=== PATIENT | male | born 1980 | race Caucasian/White ===

== ENCOUNTER 2024-03-19 10:41 | Inpatient (IN) | payer OTHER ==
[2024-03-19 11:07] LABS: Glucose,Whole Blood 437 mg/dL (70-110)
--- NOTE | 2024-03-19 11:28 | ED ---
Recheck HPI - General Source: patient, RN notes reviewed Mode of arrival: ambulatory Limitations: no limitations <Angella Presley - Last Filed: 03/19/24 11:26> <Derrick Gunter - Last Filed: 03/19/24 13:39> - General Chief Complaint: Recheck/Abnormal Lab/Rx Stated Complaint: Dizziness Time Seen by Provider: 03/19/24 10:58 - History of Present Illness Initial Comments: [id number] male last week past medical history was in the emergency room chief complaint of nausea, fatigue, and concern for dehydration. Patient is concerned that he may have diabetes. complaining of pain to the left ankle with ambulation and ROM. (Angella Presley) 43-year-old male presents with polydipsia polyuria, fatigue. Patient was concerned that he may have diabetes and initial blood sugar is over 400 with no prior history. He states over the past several weeks he has not felt well with nausea without vomiting. He states his diet is poor. He denies alcohol consumption. (Derrick Gunter) - Related Data Home Medications Medication Instructions Recorded Confirmed No Known Home Medications 03/19/24 03/19/24 Allergies Allergy/AdvReac Type Severity Reaction Status Date / Time No Known Allergies Allergy Verified 03/19/24 13:14 Review of Systems ROS Other: All systems not noted in ROS Statement are negative. <Angella Presley - Last Filed: 03/19/24 11:26> ROS Other: All systems not noted in ROS Statement are negative. <Derrick Gunter - Last Filed: 03/19/24 13:39> ROS Statement: Those systems with pertinent positive or pertinent negative responses have been documented in the HPI. Past Medical History Past Medical History: No Reported History History of Any Multi-Drug Resistant Organisms: None Reported Past Surgical History: No Surgical Hx Reported Past Psychological History: No Psychological Hx Reported Smoking Status: Vaper Past Alcohol Use History: None Reported Past Drug Use History: None Reported <Angella Presley - Last Filed: 03/19/24 11:26> General Exam Limitations: no limitations <Angella Presley - Last Filed: 03/19/24 11:26> General appearance: alert, in no apparent distress Head exam: Present: atraumatic, normocephalic Eye exam: Present: normal appearance, PERRL ENT exam: Present: mucous membranes dry Neck exam: Present: normal inspection Respiratory exam: Present: normal lung sounds bilaterally. Absent: respiratory distress, wheezes Cardiovascular Exam: Present: normal rhythm, tachycardia GI/Abdominal exam: Present: soft. Absent: distended, tenderness, guarding Psychiatric exam: Present: normal affect, normal mood Skin exam: Present: warm, dry, intact <Derrick Gunter - Last Filed: 03/19/24 13:39> - General Exam Comments Initial Comments: Visual Physical Exam Vital signs reviewed General: Well-appearing, nontoxic, no acute distress. Head: Normocephalic, atraumatic Eyes: PERRLA, EOMI ENT: Airway patent Chest: Nonlabored breathing Skin: No visual rash, normal skin tone Neuro: Alert and oriented 3 Musculoskeletal: No gross abnormalities (Angella Presley) Course Vital Signs 03/19/24 11:03 Temperature 97.5 F L Pulse Rate 119 H Respiratory 18 Rate Blood Pressure 123/82 O2 Sat by Pulse 98 Oximetry Medical Decision Making <Angella Presley - Last Filed: 03/19/24 11:26> - Lab Data Result diagrams: 03/19/24 11:22 03/19/24 11:22 <Derrick Gunter - Last Filed: 03/19/24 13:39> - Medical Decision Making I completed the quick note portion of this chart signed Angella Presley PA-C (Angella Presley) Was pt. sent in by a medical professional or institution (LINDA Mukherjee, [employer], urgent care, hospital, or senior care...) When possible be specific @ -No Did you speak to anyone other than the patient for history (EMS, parent, family, police, friend...)? What history was obtained from this source @ -No Did you review nursing and triage notes (agree or disagree)? Why? @ -I reviewed and agree with nursing and triage notes Were old charts reviewed (outside hosp., previous admission, EMS record, old EKG, old radiological studies, urgent care reports/EKG's, senior care records)? Report findings @ -No old charts were reviewed Differential Diagnosis: New onset diabetes, DKA, dehydration, infection EKG interpreted by me (3pts min.). @Sinus tachycardia rate of 106 WV interval 151, QRS duration 98, QTc 466 ST segment elevation questionable in aVF, no elevation in lead II or 3 no reciprocal change X-rays interpreted by me (1pt min.). @ -None done CT interpreted by me (1pt min.). @ -None done U/S interpreted by me (1pt. min.). @ -None done What testing was considered but not performed or refused? (CT, X-rays, U/S, labs)? Why? @ -None What meds were considered but not given or refused? Why? @ -None Did you discuss the management of the patient with other professionals (professionals i.e. DrCelso, PA, [employer], lab, RT, psych nurse, vp digital marketing social media and crm, manager transition, teacher, senior grants officer, senior case manager)? Give summary @ -Case discussed with Dr. Garcia, who will admit Was smoking cessation discussed for >3mins.? @ -No Was critical care preformed (if so, how long)? @ -Yes, 35 minutes Were there social determinants of health that impacted care today? How? (Homelessness, low income, unemployed, alcoholism, drug addiction, transportation, low edu. Level, literacy, decrease access to med. care, half-way, rehab)? @ -No Was there de-escalation of care discussed even if they declined (Discuss DNR or withdrawal of care, Hospice)? DNR status @ -No What co-morbidities impacted this encounter? (DM, HTN, Smoking, COPD, CAD, Cancer, CVA, ARF, Chemo, Hep., AIDS, mental health diagnosis, sleep apnea, morbid obesity)? @ -None Was patient admitted / discharged? Hospital course, mention meds given and route, prescriptions, significant lab abnormalities, going to OR and other pertinent info. @ -43-year-old male with new onset diabetes. Patient given 2 L normal saline and started on insulin drip in the emergency department. He is in diabetic ketoacidosis with elevated blood sugar, acetone positive and an undetectable CO2. Venous gases ordered, results pending. Patient admitted to internal m edicine. Undiagnosed new problem with uncertain prognosis? @ -No Drug Therapy requiring intensive monitoring for toxicity (Heparin, Nitro, Insulin, Cardizem)? @ -No Were any procedures done? @ -No Diagnosis/symptom? @ -[Diabetic ketoacidosis, new onset diabetes Acute, or Chronic, or Acute on Chronic? @ -Acute Uncomplicated (without systemic symptoms) or Complicated (systemic symptoms)? @ -Default Side effects of treatment? @ -No Exacerbation, Progression, or Severe Exacerbation? @ -No Poses a threat to life or bodily function? How? (Chest pain, USA, ND, pneumonia, PE, COPD, DKA, ARF, appy, cholecystitis, CVA, Diverticulitis, Homicidal, Suicidal, threat to staff... and all critical care pts) @ -Yes, DKA (Derrick Gunter) - Lab Data Lab Results 03/19/24 03/19/24 03/19/24 Range/Units 11:06 11:22 11:22 WBC 14.5 H (3.8-10.6) k/uL RBC 6.05 H (4.30-5.90) m/uL Hgb 17.9 H (13.0-17.5) gm/dL Hct 54.3 H (39.0-53.0) % MCV 89.7 (80.0-100.0) fL MCH 29.5 (25.0-35.0) pg MCHC 32.9 (31.0-37.0) g/dL RDW 13.5 (11.5-15.5) % Plt Count 317 (150-450) k/uL MPV 9.1 Neutrophils % 79 % Lymphocytes % 13 % Monocytes % 5 % Eosinophils % 0 % Basophils % 1 % Neutrophils # 11.5 H (1.3-7.7) k/uL Lymphocytes # 1.9 (1.0-4.8) k/uL Monocytes # 0.7 (0-1.0) k/uL Eosinophils # 0.1 (0-0.7) k/uL Basophils # 0.1 (0-0.2) k/uL Sodium 134 L (137-145) mmol/L Potassium 4.5 (3.5-5.1) mmol/L Chloride 100 (98-107) mmol/L Carbon Dioxide <5 L* (22-30) mmol/L Anion Gap mmol/L BUN 22 H (9-20) mg/dL Creatinine 1.08 (0.66-1.25) mg/dL Est GFR (CKD-EPI)AfAm >90 (>60 ml/min/1.73 sqM) Est GFR (CKD-EPI)NonAf 84 (>60 ml/min/1.73 sqM) Glucose 449 H (74-99) mg/dL POC Glucose (mg/dL) 437 H (70-110) mg/dL POC Glu Secretary Administrative Assistant ROSALVA Vu Calcium 9.0 (8.4-10.2) mg/dL Total Bilirubin 0.9 (0.2-1.3) mg/dL AST 36 (17-59) U/L ALT 56 H (4-49) U/L Alkaline Phosphatase 237 H (38-126) U/L Total Protein 8.3 H (6.3-8.2) g/dL Albumin 4.8 (3.5-5.0) g/dL Urine Color Urine Appearance (Clear) Urine pH (5.0-8.0) Ur Specific [place] (1.001-1.035) Urine Protein (Negative) Urine Glucose (UA) (Negative) Urine Ketones (Negative) Urine Blood (Negative) Urine Nitrite (Negative) Urine Bilirubin (Negative) Urine Urobilinogen (<2.0) mg/dL Ur Leukocyte Esterase (Negative) Urine RBC (0-5) /hpf Urine WBC (0-5) /hpf Urine Bacteria (None) /hpf Hyaline Casts (0-2) /lpf Urine Mucus (None) /hpf Acetone, Qual Positive (Negative) 03/19/24 Range/Units 11:29 WBC (3.8-10.6) k/uL RBC (4.30-5.90) m/uL Hgb (13.0-17.5) gm/dL Hct (39.0-53.0) % MCV (80.0-100.0) fL MCH (25.0-35.0) pg MCHC (31.0-37.0) g/dL RDW (11.5-15.5) % Plt Count (150-450) k/uL MPV Neutrophils % % Lymphocytes % % Monocytes % % Eosinophils % % Basophils % % Neutrophils # (1.3-7.7) k/uL Lymphocytes # (1.0-4.8) k/uL Monocytes # (0-1.0) k/uL Eosinophils # (0-0.7) k/uL Basophils # (0-0.2) k/uL Sodium (137-145) mmol/L Potassium (3.5-5.1) mmol/L Chloride (98-107) mmol/L Carbon Dioxide (22-30) mmol/L Anion Gap mmol/L BUN (9-20) mg/dL Creatinine (0.66-1.25) mg/dL Est GFR (CKD-EPI)AfAm (>60 ml/min/1.73 sqM) Est GFR (CKD-EPI)NonAf (>60 ml/min/1.73 sqM) Glucose (74-99) mg/dL POC Glucose (mg/dL) (70-110) mg/dL POC Glu Secretary Administrative Assistant ID Calcium (8.4-10.2) mg/dL Total Bilirubin (0.2-1.3) mg/dL AST (17-59) U/L ALT (4-49) U/L Alkaline Phosphatase (38-126) U/L Total Protein (6.3-8.2) g/dL Albumin (3.5-5.0) g/dL Urine Color Colorless Urine Appearance Clear (Clear) Urine pH 5.5 (5.0-8.0) Ur Specific [place] 1.027 (1.001-1.035) Urine Protein 1+ H (Negative) Urine Glucose (UA) 4+ H (Negative) Urine Ketones 4+ H (Negative) Urine Blood Small H (Negative) Urine Nitrite Negative (Negative) Urine Bilirubin Negative (Negative) Urine Urobilinogen <2.0 (<2.0) mg/dL Ur Leukocyte Esterase Negative (Negative) Urine RBC 1 (0-5) /hpf Urine WBC 2 (0-5) /hpf Urine Bacteria Rare H (None) /hpf Hyaline Casts 3 H (0-2) /lpf Urine Mucus Rare H (None) /hpf Acetone, Qual (Negative) Critical Care Time Critical Care Time: Yes Total Critical Care Time: 35 <Derrick Gunter - Last Filed: 03/19/24 13:39> Disposition <Angella Presley - Last Filed: 03/19/24 11:26> Is patient prescribed a controlled substance at d/c from ED?: No Time of Disposition: 12:54 <Derrick Gunter - Last Filed: 03/19/24 13:39> Clinical Impression: DKA (diabetic ketoacidosis) Disposition: ADMITTED IP TO THIS HOSP Condition: Serious
[2024-03-19 11:31] LABS: Basophils # (A) 0.1 k/uL (0-0.2); Basophils % (A) 1 %; Eosinophils # (A) 0.1 k/uL (0-0.7); Eosinophils % (A) 0 %; HCT 54.3 % (39.0-53.0); HGB 17.9 gm/dL (13.0-17.5); Lymphocytes # (A) 1.9 k/uL (1.0-4.8); Lymphocytes % (A) 13 %; MCH 29.5 pg (25.0-35.0); MCHC 32.9 g/dL (31.0-37.0); MCV 89.7 fL (80.0-100.0); Mean Platelet Volume 9.1; Monocytes # (A) 0.7 k/uL (0-1.0); Monocytes % (A) 5 %; Neutrophils # (A) 11.5 k/uL (1.3-7.7); Neutrophils % (A) 79 %; Platelet Count 317 k/uL (150-450); RBC 6.05 m/uL (4.30-5.90); RDW 13.5 % (11.5-15.5); WBC 14.5 k/uL (3.8-10.6)
[2024-03-19 11:58] LABS: ALT 56 U/L (4-49); AST 36 U/L (17-59); African American GFR (CKD) >90 (>60 ml/min/1.73 sqM); Albumin 4.8 g/dL (3.5-5.0); Alkaline Phosphatase 237 U/L (38-126); Blood Urea Nitrogen 22 mg/dL (9-20); Chloride 100 mmol/L (98-107); Glucose 449 mg/dL (74-99); Non-African American GFR(CKD) 84 (>60 ml/min/1.73 sqM); Potassium 4.5 mmol/L (3.5-5.1); Sodium 134 mmol/L (137-145); Total Bilirubin 0.9 mg/dL (0.2-1.3); Total Protein 8.3 g/dL (6.3-8.2)
[2024-03-19 12:03] LABS: Appearance,Urine Clear (Clear); Bacteria,Urine Rare /hpf; Bilirubin,Urine Negative (Negative); Blood,Urine Small (Negative); Color,Urine Colorless; Glucose,Urine (UA) 4+ (Negative); Hyaline Casts,Urine 3 /lpf (0-2); Leukocyte Esterase,Urine Negative (Negative); Mucus,Urine Rare /hpf; Nitrite,Urine Negative (Negative); PH, Urine 5.5 (5.0-8.0); Protein,Urine 1+ (Negative); RBC,Urine 1 /hpf (0-5); Specific Gravity,Urine 1.027 (1.001-1.035); Urobilinogen,Urine <2.0 mg/dL (<2.0); WBC,Urine 2 /hpf (0-5)
[2024-03-19 12:12] LABS: Ketones,Urine 4+ (Negative)
[2024-03-19 12:18] LABS: Carbon Dioxide <5 mmol/L (22-30)
[2024-03-19] MEDS: SODIUM CHLORIDE 0.9% 1,000 ML IV ONE ×2 (12:57→12:58)
[2024-03-19] MEDS: INSULIN REGULAR 100 UNIT in SODIUM CHLORIDE 0.9% 100 ML IV SCH (13:15)
[2024-03-19 13:55] LABS: VBG PH 7.13 (7.31-7.41)
[2024-03-19] MEDS: POTASSIUM CHLORIDE ER 20 MEQ TAB.ER PO STA (14:12)
[2024-03-19 14:42] LABS: Glucose,Whole Blood 301 mg/dL (70-110)
[2024-03-19] MEDS: SODIUM CHLORIDE 0.9% 1,000 ML IV SCH (14:46)
[2024-03-19 15:14] LABS: Glucose,Whole Blood 270 mg/dL (70-110)
[2024-03-19] MEDS: D5-0.45% NACL WITH KCL 20MEQ/L 1,000 ML IV SCH (16:00)
[2024-03-19 16:03] LABS: Glucose,Whole Blood 206 mg/dL (70-110)
[2024-03-19 16:31] LABS: African American GFR (CKD) >90 (>60 ml/min/1.73 sqM); Anion Gap 27 mmol/L; Blood Urea Nitrogen 19 mg/dL (9-20); Chloride 105 mmol/L (98-107); Glucose 232 mg/dL (74-99); Non-African American GFR(CKD) >90 (>60 ml/min/1.73 sqM); Potassium 3.9 mmol/L (3.5-5.1); Sodium 139 mmol/L (137-145)
[2024-03-19 16:36] LABS: Carbon Dioxide 7 mmol/L (22-30)
[2024-03-19] MEDS ORDERED: NALOXONE 0.4 MG/ML 1 ML VIAL IV PRN (17:13)
[2024-03-19] MEDS ORDERED: ONDANSETRON 4 MG/2 ML VIAL IVP PRN (17:13)
--- NOTE | 2024-03-19 17:20 | P.HPIM ---
History of Present Illness H&P Date: 03/19/24 43 year old M with no PMH does not follow a PCP presents to the ED for a constellation of symptoms. He reports nausea/vomiting, lightheadedness, fatigue, polydipsia, polyuria, poor appetite for the past week and a half. This prompted him to come to the ED. He denies any abdominal or chest pain, changes in bowel habits, fever or chills, numbness/weakness/tingling of the extremities. Denies alcohol or illicit drugs. In the ED he underwent extensive evaluation. T 97.5F, HR 119, RR 18, BP 123/80, 98% on RA. CBC and CMP significant for WBC 14.5, RBC 6.05, Hg 17.9, Hct 54.3, Na 134, bicarb < 5, BUN 22, glu 449, ALT 56, alk phos 237. UA 1+ protein, 4+ glucose, 4+ ketones, small blood, negative LE or nitrite. EKG sinus tachycardia with ST elevation in aVF with no reciprocal changes. Patient is started on an insulin drip and 2L NS bolus and admitted for further workup and management. General: non toxic, no distress, appears at stated age Derm: warm, dry Head: atraumatic, normocephalic, symmetric Eyes: EOMI, no lid lag, anicteric sclera Mouth: no lip lesion, mucus membranes moist Cardiovascular: S1S2 tachy, no murmur Lungs: Clear to auscultation bilateral, no rhonchi, no rales, no accessory muscle use Ext: no gross muscle atrophy, no edema, no contractures Abd: Soft, non tender to palpation Neuro: no focal neuro deficits Psych: Alert, oriented, appropriate affect Based on my assessment of this patient, this patient meets a high complexity level of care. Diabetic ketoacidosis: Start insulin drip at 1 unit/kg/hr. D5 1/2 NS at 150 cc/hr. Telemetry monitoring. Hourly accuchecks. BMP Q4H. Check A1c. Admit to ICU. SIRS likely related to above: Monitor fever profile. No signs of active infection. Erythrocytosis: Likely due to dehydration. Elevated BUN: Likely due to dehydration. Transaminitis: Obtain Lipid panel. Obesity with BMI 34. CODE STATUS: FULL CODE DVT Prophylaxis: Lovenox SQ GI Prophylaxis: Designated medical POA if patient is not able to make medical decisions for the mselves: I have reviewed the following independent crop consultant notes: ED note. I have reviewed the results of the following tests: As above. I have ordered the following tests: As above. I have discussed the care of this patient with the following independent historian: LELE. I have independently interpreted the following test below: Past Medical History Past Medical History: No Reported History History of Any Multi-Drug Resistant Organisms: None Reported Past Surgical History: No Surgical Hx Reported Past Psychological History: No Psychological Hx Reported Smoking Status: Vaper Past Alcohol Use History: None Reported Past Drug Use History: None Reported Medications and Allergies Home Medications Medication Instructions Recorded Confirmed Type No Known Home Medications 03/19/24 03/19/24 History Allergies Allergy/AdvReac Type Severity Reaction Status Date / Time No Known Allergies Allergy Verified 03/19/24 13:14 Physical Exam Vitals: Vital Signs Temp Pulse Resp BP Pulse Ox 03/19/24 16:06 101 H 19 132/94 99 03/19/24 15:04 110 H 20 126/87 100 03/19/24 11:03 97.5 F L 119 H 18 123/82 98 Intake and Output 03/19/24 03/19/24 03/19/24 06:59 14:59 22:59 Intake Total 34.891 Balance 34.891 Intake: Intake, IV Titration 34.891 Amount Insulin Regular 100 unit 34.891 In Sodium Chloride 0.9% 100 ml @ 0.1 UNITS/KG/HR 12.461 mls/hr IV .Q8H7M [facility] Rx#:[id number] Other: Weight 123.377 kg Results CBC & Chem 7: 03/19/24 11:22 03/19/24 15:58 Labs: Abnormal Lab Results - Last 24 Hours (Table) 03/19/24 03/19/24 03/19/24 Range/Units 11:06 11:22 11:22 WBC 14.5 H (3.8-10.6) k/uL RBC 6.05 H (4.30-5.90) m/uL Hgb 17.9 H (13.0-17.5) gm/dL Hct 54.3 H (39.0-53.0) % Neutrophils # 11.5 H (1.3-7.7) k/uL VBG pH (7.31-7.41) VBG pCO2 (37-51) mmHg VBG HCO3 (24-28) mmol/L Sodium 134 L (137-145) mmol/L Carbon Dioxide <5 L* (22-30) mmol/L BUN 22 H (9-20) mg/dL Glucose 449 H (74-99) mg/dL POC Glucose (mg/dL) 437 H (70-110) mg/dL ALT 56 H (4-49) U/L Alkaline Phosphatase 237 H (38-126) U/L Total Protein 8.3 H (6.3-8.2) g/dL Urine Protein (Negative) Urine Glucose (UA) (Negative) Urine Ketones (Negative) Urine Blood (Negative) Urine Bacteria (None) /hpf Hyaline Casts (0-2) /lpf Urine Mucus (None) /hpf 03/19/24 03/19/24 03/19/24 Range/Units 11:29 13:13 14:41 WBC (3.8-10.6) k/uL RBC (4.30-5.90) m/uL Hgb (13.0-17.5) gm/dL Hct (39.0-53.0) % Neutrophils # (1.3-7.7) k/uL VBG pH 7.13 L* (7.31-7.41) VBG pCO2 28 L (37-51) mmHg VBG HCO3 9 L* (24-28) mmol/L Sodium (137-145) mmol/L Carbon Dioxide (22-30) mmol/L BUN (9-20) mg/dL Glucose (74-99) mg/dL POC Glucose (mg/dL) 301 H (70-110) mg/dL ALT (4-49) U/L Alkaline Phosphatase (38-126) U/L Total Protein (6.3-8.2) g/dL Urine Protein 1+ H (Negative) Urine Glucose (UA) 4+ H (Negative) Urine Ketones 4+ H (Negative) Urine Blood Small H (Negative) Urine Bacteria Rare H (None) /hpf Hyaline Casts 3 H (0-2) /lpf Urine Mucus Rare H (None) /hpf 03/19/24 03/19/24 03/19/24 Range/Units 15:13 15:58 16:01 WBC (3.8-10.6) k/uL RBC (4.30-5.90) m/uL Hgb (13.0-17.5) gm/dL Hct (39.0-53.0) % Neutrophils # (1.3-7.7) k/uL VBG pH (7.31-7.41) VBG pCO2 (37-51) mmHg VBG HCO3 (24-28) mmol/L Sodium (137-145) mmol/L Carbon Dioxide 7 L* (22-30) mmol/L BUN (9-20) mg/dL Glucose 232 H (74-99) mg/dL POC Glucose (mg/dL) 270 H 206 H (70-110) mg/dL ALT (4-49) U/L Alkaline Phosphatase (38-126) U/L Total Protein (6.3-8.2) g/dL Urine Protein (Negative) Urine Glucose (UA) (Negative) Urine Ketones (Negative) Urine Blood (Negative) Urine Bacteria (None) /hpf Hyaline Casts (0-2) /lpf Urine Mucus (None) /hpf
[2024-03-19 17:38] LABS: Glucose,Whole Blood 202 mg/dL (70-110)
[2024-03-19 18:38] LABS: Glucose,Whole Blood 180 mg/dL (70-110)
[2024-03-19 19:37] LABS: Glucose,Whole Blood 151 mg/dL (70-110)
[2024-03-19 20:41] LABS: Glucose,Whole Blood 143 mg/dL (70-110)
[2024-03-19 20:58] LABS: African American GFR (CKD) >90 (>60 ml/min/1.73 sqM); Anion Gap 18 mmol/L; Blood Urea Nitrogen 16 mg/dL (9-20); Carbon Dioxide 10 mmol/L (22-30); Chloride 108 mmol/L (98-107); Glucose 149 mg/dL (74-99); Non-African American GFR(CKD) >90 (>60 ml/min/1.73 sqM); Potassium 4.1 mmol/L (3.5-5.1); Sodium 136 mmol/L (137-145)
[2024-03-19 21:32] LABS: Glucose,Whole Blood 174 mg/dL (70-110)
[2024-03-19 22:32] LABS: Glucose,Whole Blood 147 mg/dL (70-110)
[2024-03-19] MEDS: ACETAMINOPHEN TAB 325 MG TAB PO PRN (23:41)
[2024-03-19 23:45] LABS: Glucose,Whole Blood 158 mg/dL (70-110)
[2024-03-20 00:55] LABS: Glucose,Whole Blood 195 mg/dL (70-110)
[2024-03-20 01:56] LABS: African American GFR (CKD) >90 (>60 ml/min/1.73 sqM); Anion Gap 15 mmol/L; Blood Urea Nitrogen 14 mg/dL (9-20); Carbon Dioxide 12 mmol/L (22-30); Chloride 107 mmol/L (98-107); Glucose 195 mg/dL (74-99); Non-African American GFR(CKD) >90 (>60 ml/min/1.73 sqM); Potassium 3.9 mmol/L (3.5-5.1); Sodium 134 mmol/L (137-145)
[2024-03-20 02:02] LABS: Glucose,Whole Blood 197 mg/dL (70-110)
[2024-03-20 02:47] LABS: Glucose,Whole Blood 197 mg/dL (70-110)
[2024-03-20 03:13] LABS: Chol/HDL Ratio 6.21 Ratio; LDL Cholesterol,Calculated 120.1 mg/dL (0.0-131.0)
[2024-03-20 04:07] LABS: Glucose,Whole Blood 211 mg/dL (70-110)
[2024-03-20 05:08] LABS: Glucose,Whole Blood 204 mg/dL (70-110)
[2024-03-20 06:20] LABS: Glucose,Whole Blood 207 mg/dL (70-110)
[2024-03-20 07:22] LABS: Glucose,Whole Blood 217 mg/dL (70-110)
[2024-03-20 08:52] LABS: African American GFR (CKD) >90 (>60 ml/min/1.73 sqM); Anion Gap 14 mmol/L; Blood Urea Nitrogen 12 mg/dL (9-20); Carbon Dioxide 14 mmol/L (22-30); Chloride 105 mmol/L (98-107); Glucose 222 mg/dL (74-99); Non-African American GFR(CKD) >90 (>60 ml/min/1.73 sqM); Potassium 3.9 mmol/L (3.5-5.1); Sodium 133 mmol/L (137-145)
[2024-03-20 09:12] LABS: Glucose,Whole Blood 208 mg/dL (70-110)
[2024-03-20] MEDS: ENOXAPARIN 40 MG/0.4 ML SYRINGE SQ SCH (09:14)
[2024-03-20 10:22] LABS: Glucose,Whole Blood 235 mg/dL (70-110)
[2024-03-20 11:53] LABS: Glucose,Whole Blood 220 mg/dL (70-110)
[2024-03-20 12:39] LABS: African American GFR (CKD) >90 (>60 ml/min/1.73 sqM); Anion Gap 15 mmol/L; Blood Urea Nitrogen 11 mg/dL (9-20); Carbon Dioxide 13 mmol/L (22-30); Chloride 105 mmol/L (98-107); Glucose 236 mg/dL (74-99); Non-African American GFR(CKD) >90 (>60 ml/min/1.73 sqM); Potassium 3.9 mmol/L (3.5-5.1); Sodium 133 mmol/L (137-145)
[2024-03-20 13:30] LABS: Glucose,Whole Blood 212 mg/dL (70-110)
--- NOTE | 2024-03-20 14:57 | P.PN ---
Subjective Progress Note Date: 03/20/24 43 year old M with no PMH does not follow a PCP presents to the ED for a constellation of symptoms. He reports nausea/vomiting, lightheadedness, fatigue, polydipsia, polyuria, poor appetite for the past week and a half. This prompted him to come to the ED. He denies any abdominal or chest pain, changes in bowel habits, fever or chills, numbness/weakness/tingling of the extremities. Denies alcohol or illicit drugs. In the ED he underwent extensive evaluation. T 97.5F, HR 119, RR 18, BP 123/80, 98% on RA. CBC and CMP significant for WBC 14.5, RBC 6.05, Hg 17.9, Hct 54.3, Na 134, bicarb < 5, BUN 22, glu 449, ALT 56, alk phos 237. UA 1+ protein, 4+ glucose, 4+ ketones, small blood, negative LE or nitrite. EKG sinus tachycardia with ST elevation in aVF with no reciprocal changes. Patient is started on an insulin drip and 2L NS bolus and admitted for further workup and management. 03/20 Patient was seen and examined. Feeling better. Maintained on insulin drip and D5 1/2NS w/ KCl at 150 cc/hr. A1c 14.7. BMP Na 133, bicarb 13, Cr 0.57, glu 236. Phos 1.9. Lipid panel TG 226, T. Chol 197, LDL 120.1, HDL 31.7. General: non toxic, no distress, appears at stated age Derm: warm, dry Head: atraumatic, normocephalic, symmetric Eyes: EOMI, no lid lag, anicteric sclera Mouth: no lip lesion, mucus membranes moist Cardiovascular: S1S2 reg, no murmur Lungs: Clear to auscultation bilateral, no rhonchi, no rales, no accessory muscle use Ext: no gross muscle atrophy, no edema, no contractures Abd: Soft, non tender to palpation Neuro: no focal neuro deficits Psych: Alert, oriented, appropriate affect Based on my assessment of this patient, this patient meets a high complexity level of care. Diabetic ketoacidosis: Continue insulin drip at 1 unit/kg/hr until bicarb normalizes. Continue D5 1/2 NS at 150 cc/hr. Telemetry monitoring. Hourly accuchecks. BMP Q8H. 1 amp sodium bicarb today. SIRS likely related to above: Monitor fever profile. No signs of active infection. Erythrocytosis: Likely due to dehydration. Elevated BUN: Likely due to dehydration. Transaminitis: Obtain Lipid panel. Obesity with BMI 34. CODE STATUS: FULL CODE DVT Prophylaxis: Lovenox SQ GI Prophylaxis: Designated medical POA if patient is not able to make medical decisions for themselves: I have reviewed the following neuropsychology medical consultant notes: I have reviewed the results of the following tests: As above. I have ordered the following tests: As above. I have discussed the care of this patient with the following independent historian: RN. I have independently interpreted the following test below: Objective - Vital Signs Vital signs: Vital Signs Temp 98.2 F 03/20/24 13:19 Pulse 85 03/20/24 13:19 Resp 16 03/20/24 13:19 BP 118/75 03/20/24 13:19 Pulse Ox 98 03/20/24 13:19 FiO2 Intake & Output 03/19/24 03/20/24 03/20/24 18:59 06:59 18:59 Intake Total 66.874 49.689 28.295 Balance 66.874 49.689 28.295 Weight 123.377 kg Intake: Intake, IV Titration 66.874 49.689 28.295 Amount Insulin Regular 100 unit 66.874 49.689 28.295 In Sodium Chloride 0.9% 100 ml @ 0.1 UNITS/KG/HR 12.461 mls/hr IV .Q8H7M [facility] Rx#:[id number] - Labs CBC & Chem 7: 03/19/24 11:22 03/20/24 12:01 Labs: Abnormal Lab Results - Last 24 Hours (Table) 03/19/24 03/19/24 03/19/24 Range/Units 15:13 15:58 16:01 Sodium (137-145) mmol/L Chloride (98-107) mmol/L Carbon Dioxide 7 L* (22-30) mmol/L Creatinine (0.66-1.25) mg/dL Glucose 232 H (74-99) mg/dL POC Glucose (mg/dL) 270 H 206 H (70-110) mg/dL Hemoglobin A1c (<=6.0) % Phosphorus (2.5-4.5) mg/dL Triglycerides (0.00-149.00) mg/dL VLDL Cholesterol, Calc (5.00-40.00) mg/dL HDL Cholesterol (40.00-60.00) mg/dL 03/19/24 03/19/24 03/19/24 Range/Units 17:32 18:36 19:35 Sodium (137-145) mmol/L Chloride (98-107) mmol/L Carbon Dioxide (22-30) mmol/L Creatinine (0.66-1.25) mg/dL Glucose (74-99) mg/dL POC Glucose (mg/dL) 202 H 180 H 151 H (70-110) mg/dL Hemoglobin A1c (<=6.0) % Phosphorus (2.5-4.5) mg/dL Triglycerides (0.00-149.00) mg/dL VLDL Cholesterol, Calc (5.00-40.00) mg/dL HDL Cholesterol (40.00-60.00) mg/dL 03/19/24 03/19/24 03/19/24 Range/Units 20:08 20:08 20:08 Sodium 136 L (137-145) mmol/L Chloride 108 H (98-107) mmol/L Carbon Dioxide 10 L (22-30) mmol/L Creatinine (0.66-1.25) mg/dL Glucose 149 H (74-99) mg/dL POC Glucose (mg/dL) (70-110) mg/dL Hemoglobin A1c 14.7 H (<=6.0) % Phosphorus 2.1 L (2.5-4.5) mg/dL Triglycerides (0.00-149.00) mg/dL VLDL Cholesterol, Calc (5.00-40.00) mg/dL HDL Cholesterol (40.00-60.00) mg/dL 03/19/24 03/19/24 03/19/24 Range/Units 20:08 20:29 21:31 Sodium (137-145) mmol/L Chloride (98-107) mmol/L Carbon Dioxide (22-30) mmol/L Creatinine (0.66-1.25) mg/dL Glucose (74-99) mg/dL POC Glucose (mg/dL) 143 H 174 H (70-110) mg/dL Hemoglobin A1c (<=6.0) % Phosphorus (2.5-4.5) mg/dL Triglycerides 226.00 H (0.00-149.00) mg/dL VLDL Cholesterol, Calc 45.20 H (5.00-40.00) mg/dL HDL Cholesterol 31.70 L (40.00-60.00) mg/dL 03/19/24 03/19/24 03/20/24 Range/Units 22:31 23:44 00:39 Sodium 134 L (137-145) mmol/L Chloride (98-107) mmol/L Carbon Dioxide 12 L (22-30) mmol/L Creatinine 0.62 L (0.66-1.25) mg/dL Glucose 195 H (74-99) mg/dL POC Glucose (mg/dL) 147 H 158 H (70-110) mg/dL Hemoglobin A1c (<=6.0) % Phosphorus (2.5-4.5) mg/dL Triglycerides (0.00-149.00) mg/dL VLDL Cholesterol, Calc (5.00-40.00) mg/dL HDL Cholesterol (40.00-60.00) mg/dL 03/20/24 03/20/24 03/20/24 Range/Units 00:53 01:58 02:46 Sodium (137-145) mmol/L Chloride (98-107) mmol/L Carbon Dioxide (22-30) mmol/L Creatinine (0.66-1.25) mg/dL Glucose (74-99) mg/dL POC Glucose (mg/dL) 195 H 197 H 197 H (70-110) mg/dL Hemoglobin A1c (<=6.0) % Phosphorus (2.5-4.5) mg/dL Triglycerides (0.00-149.00) mg/dL VLDL Cholesterol, Calc (5.00-40.00) mg/dL HDL Cholesterol (40.00-60.00) mg/dL 03/20/24 03/20/24 03/20/24 Range/Units 04:04 05:07 06:18 Sodium (137-145) mmol/L Chloride (98-107) mmol/L Carbon Dioxide (22-30) mmol/L Creatinine (0.66-1.25) mg/dL Glucose (74-99) mg/dL POC Glucose (mg/dL) 211 H 204 H 207 H (70-110) mg/dL Hemoglobin A1c (<=6.0) % Phosphorus (2.5-4.5) mg/dL Triglycerides (0.00-149.00) mg/dL VLDL Cholesterol, Calc (5.00-40.00) mg/dL HDL Cholesterol (40.00-60.00) mg/dL 03/20/24 03/20/24 03/20/24 Range/Units 07:20 07:25 07:25 Sodium 133 L (137-145) mmol/L Chloride (98-107) mmol/L Carbon Dioxide 14 L (22-30) mmol/L Creatinine 0.59 L (0.66-1.25) mg/dL Glucose 222 H (74-99) mg/dL POC Glucose (mg/dL) 217 H (70-110) mg/dL Hemoglobin A1c (<=6.0) % Phosphorus 2.1 L (2.5-4.5) mg/dL Triglycerides (0.00-149.00) mg/dL VLDL Cholesterol, Calc (5.00-40.00) mg/dL HDL Cholesterol (40.00-60.00) mg/dL 03/20/24 03/20/24 03/20/24 Range/Units 09:10 10:20 11:52 Sodium (137-145) mmol/L Chloride (98-107) mmol/L Carbon Dioxide (22-30) mmol/L Creatinine (0.66-1.25) mg/dL Glucose (74-99) mg/dL POC Glucose (mg/dL) 208 H 235 H 220 H (70-110) mg/dL Hemoglobin A1c (<=6.0) % Phosphorus (2.5-4.5) mg/dL Triglycerides (0.00-149.00) mg/dL VLDL Cholesterol, Calc (5.00-40.00) mg/dL HDL Cholesterol (40.00-60.00) mg/dL 03/20/24 03/20/24 03/20/24 Range/Units 12:01 12:01 13:27 Sodium 133 L (137-145) mmol/L Chloride (98-107) mmol/L Carbon Dioxide 13 L (22-30) mmol/L Creatinine 0.57 L (0.66-1.25) mg/dL Glucose 236 H (74-99) mg/dL POC Glucose (mg/dL) 212 H (70-110) mg/dL Hemoglobin A1c (<=6.0) % Phosphorus 1.9 L (2.5-4.5) mg/dL Triglycerides (0.00-149.00) mg/dL VLDL Cholesterol, Calc (5.00-40.00) mg/dL HDL Cholesterol (40.00-60.00) mg/dL
[2024-03-20 14:59] LABS: Glucose,Whole Blood 277 mg/dL (70-110)
[2024-03-20] MEDS: SODIUM BICARB 8.4% 50 ML SYR (1 MEQ/ML) IV STA (15:23)
[2024-03-20 16:04] LABS: Glucose,Whole Blood 326 mg/dL (70-110)
[2024-03-20 16:53] LABS: African American GFR (CKD) >90 (>60 ml/min/1.73 sqM); Anion Gap 13 mmol/L; Blood Urea Nitrogen 11 mg/dL (9-20); Calcium 8.6 mg/dL (8.4-10.2); Carbon Dioxide 15 mmol/L (22-30); Chloride 104 mmol/L (98-107); Glucose 341 mg/dL (74-99); Non-African American GFR(CKD) >90 (>60 ml/min/1.73 sqM); Potassium 4.1 mmol/L (3.5-5.1); Sodium 132 mmol/L (137-145)
[2024-03-20 17:04] LABS: Glucose,Whole Blood 282 mg/dL (70-110)
[2024-03-20 18:07] LABS: Glucose,Whole Blood 255 mg/dL (70-110)
[2024-03-20 19:09] LABS: Glucose,Whole Blood 226 mg/dL (70-110)
[2024-03-20 20:05] LABS: Glucose,Whole Blood 216 mg/dL (70-110)
[2024-03-20 21:19] LABS: Glucose,Whole Blood 186 mg/dL (70-110)
[2024-03-20 22:13] LABS: Glucose,Whole Blood 191 mg/dL (70-110)
[2024-03-20 23:05] LABS: Glucose,Whole Blood 175 mg/dL (70-110)
[2024-03-21 00:03] LABS: Glucose,Whole Blood 162 mg/dL (70-110)
[2024-03-21 00:48] LABS: African American GFR (CKD) >90 (>60 ml/min/1.73 sqM); Anion Gap 8 mmol/L; Blood Urea Nitrogen 9 mg/dL (9-20); Calcium 8.3 mg/dL (8.4-10.2); Carbon Dioxide 18 mmol/L (22-30); Chloride 107 mmol/L (98-107); Glucose 164 mg/dL (74-99); Non-African American GFR(CKD) >90 (>60 ml/min/1.73 sqM); Phosphorus 1.9 mg/dL (2.5-4.5); Potassium 3.5 mmol/L (3.5-5.1); Sodium 133 mmol/L (137-145)
[2024-03-21 01:04] LABS: Glucose,Whole Blood 142 mg/dL (70-110)
[2024-03-21 02:07] LABS: Glucose,Whole Blood 127 mg/dL (70-110)
[2024-03-21 03:06] LABS: Glucose,Whole Blood 141 mg/dL (70-110)
[2024-03-21 04:07] LABS: Glucose,Whole Blood 161 mg/dL (70-110)
[2024-03-21 05:09] LABS: Glucose,Whole Blood 178 mg/dL (70-110)
[2024-03-21 06:01] LABS: Glucose,Whole Blood 184 mg/dL (70-110)
[2024-03-21 07:04] LABS: Glucose,Whole Blood 287 mg/dL (70-110)
[2024-03-21 08:19] LABS: Glucose,Whole Blood 189 mg/dL (70-110)
[2024-03-21 08:20] LABS: African American GFR (CKD) >90 (>60 ml/min/1.73 sqM); Anion Gap 13 mmol/L; Blood Urea Nitrogen 7 mg/dL (9-20); Calcium 8.2 mg/dL (8.4-10.2); Carbon Dioxide 17 mmol/L (22-30); Chloride 103 mmol/L (98-107); Glucose 212 mg/dL (74-99); Non-African American GFR(CKD) >90 (>60 ml/min/1.73 sqM); Potassium 3.5 mmol/L (3.5-5.1); Sodium 133 mmol/L (137-145)
[2024-03-21 09:07] LABS: Glucose,Whole Blood 194 mg/dL (70-110)
[2024-03-21 10:17] LABS: Glucose,Whole Blood 185 mg/dL (70-110)
[2024-03-21 11:08] LABS: Glucose,Whole Blood 197 mg/dL (70-110)
[2024-03-21] MEDS: SODIUM BICARB 8.4% 50 ML SYR (1 MEQ/ML) IV STA (11:55)
[2024-03-21 12:04] LABS: Glucose,Whole Blood 174 mg/dL (70-110)
[2024-03-21 13:07] LABS: Glucose,Whole Blood 216 mg/dL (70-110)
--- NOTE | 2024-03-21 13:20 | P.PN ---
Subjective Progress Note Date: 03/21/24 43 year old M with no PMH does not follow a PCP presents to the ED for a constellation of symptoms. He reports nausea/vomiting, lightheadedness, fatigue, polydipsia, polyuria, poor appetite for the past week and a half. This prompted him to come to the ED. He denies any abdominal or chest pain, changes in bowel habits, fever or chills, numbness/weakness/tingling of the extremities. Denies alcohol or illicit drugs. In the ED he underwent extensive evaluation. T 97.5F, HR 119, RR 18, BP 123/80, 98% on RA. CBC and CMP significant for WBC 14.5, RBC 6.05, Hg 17.9, Hct 54.3, Na 134, bicarb < 5, BUN 22, glu 449, ALT 56, alk phos 237. UA 1+ protein, 4+ glucose, 4+ ketones, small blood, negative LE or nitrite. EKG sinus tachycardia with ST elevation in aVF with no reciprocal changes. Patient is started on an insulin drip and 2L NS bolus and admitted for further workup and management. 03/21 Patient was seen and examined. Feeling better. Maintained on insulin drip and D5 1/2NS w/ KCl at 150 cc/hr. BMP Na 133, bicarb 17, BUN 7, Cr 0.61, glu 212. Phos 1.9. General: non toxic, no distress, appears at stated age Derm: warm, dry Head: atraumatic, normocephalic, symmetric Eyes: EOMI, no lid lag, anicteric sclera Mouth: no lip lesion, mucus membranes moist Cardiovascular: S1S2 reg, no murmur Lungs: Clear to auscultation bilateral, no rhonchi, no rales, no accessory muscle use Ext: no gross muscle atrophy, no edema, no contractures Neuro: no focal neuro deficits Psych: Alert, oriented, appropriate affect Based on my assessment of this patient, this patient meets a high complexity level of care. Diabetic ketoacidosis: Continue insulin drip at 1 unit/kg/hr until bicarb normalizes. Continue D5 1/2 NS at 150 cc/hr. Telemetry monitoring. Hourly accuchecks. BMP Q8H. SIRS likely related to above: Monitor fever profile. No signs of active infection. Erythrocytosis: Likely due to dehydration. Elevated BUN: Likely due to dehydration. Transaminitis: Obtain Lipid panel. Obesity with BMI 34. CODE STATUS: FULL CODE DVT Prophylaxis: Lovenox SQ GI Prophylaxis: Designated medical POA if patient is not able to make medical decisions for themselves: I have reviewed the following assessment consultant notes: I have reviewed the results of the following tests: Serial BMPs I have ordered the following tests: BMP Q8H I have discussed the care of this patient with the following independent historian: LELE. I have independently interpreted the following test below: Objective - Vital Signs Vital signs: Vital Signs Temp 98.3 F 03/20/24 20:44 Pulse 84 03/21/24 03:10 Resp 17 03/21/24 03:10 BP 132/56 03/21/24 03:10 Pulse Ox 97 03/21/24 03:10 FiO2 Intake & Output 03/20/24 03/21/24 03/21/24 18:59 06:59 18:59 Intake Total 53.036 66.026 4.195 Balance 53.036 66.026 4.195 Weight 123.377 kg 1263 kg Intake: Intake, IV Titration 53.036 66.026 4.195 Amount Insulin Regular 100 unit 53.036 66.026 4.195 In Sodium Chloride 0.9% 100 ml @ 0.1 UNITS/KG/HR 12.461 mls/hr IV .Q8H7M RUDY Rx#:[id number] Other: Voiding Method Toilet # Voids 1 1 - Labs CBC & Chem 7: 03/19/24 11:22 03/21/24 07:46 Labs: Abnormal Lab Results - Last 24 Hours (Table) 03/20/24 03/20/24 03/20/24 Range/Units 07:25 07:25 09:10 Sodium 133 L (137-145) mmol/L Carbon Dioxide 14 L (22-30) mmol/L Creatinine 0.59 L (0.66-1.25) mg/dL Glucose 222 H (74-99) mg/dL POC Glucose (mg/dL) 208 H (70-110) mg/dL Calcium (8.4-10.2) mg/dL Phosphorus 2.1 L (2.5-4.5) mg/dL 03/20/24 03/20/24 03/20/24 Range/Units 10:20 11:52 12:01 Sodium (137-145) mmol/L Carbon Dioxide (22-30) mmol/L Creatinine (0.66-1.25) mg/dL Glucose (74-99) mg/dL POC Glucose (mg/dL) 235 H 220 H (70-110) mg/dL Calcium (8.4-10.2) mg/dL Phosphorus 1.9 L (2.5-4.5) mg/dL 03/20/24 03/20/24 03/20/24 Range/Units 12:01 13:27 14:57 Sodium 133 L (137-145) mmol/L Carbon Dioxide 13 L (22-30) mmol/L Creatinine 0.57 L (0.66-1.25) mg/dL Glucose 236 H (74-99) mg/dL POC Glucose (mg/dL) 212 H 277 H (70-110) mg/dL Calcium (8.4-10.2) mg/dL Phosphorus (2.5-4.5) mg/dL 03/20/24 03/20/24 03/20/24 Range/Units 16:02 16:03 17:02 Sodium 132 L (137-145) mmol/L Carbon Dioxide 15 L (22-30) mmol/L Creatinine 0.65 L (0.66-1.25) mg/dL Glucose 341 H (74-99) mg/dL POC Glucose (mg/dL) 326 H 282 H (70-110) mg/dL Calcium (8.4-10.2) mg/dL Phosphorus (2.5-4.5) mg/dL 03/20/24 03/20/24 03/20/24 Range/Units 18:04 19:07 20:04 Sodium (137-145) mmol/L Carbon Dioxide (22-30) mmol/L Creatinine (0.66-1.25) mg/dL Glucose (74-99) mg/dL POC Glucose (mg/dL) 255 H 226 H 216 H (70-110) mg/dL Calcium (8.4-10.2) mg/dL Phosphorus (2.5-4.5) mg/dL 03/20/24 03/20/24 03/20/24 Range/Units 21:18 22:11 23:03 Sodium (137-145) mmol/L Carbon Dioxide (22-30) mmol/L Creatinine (0.66-1.25) mg/dL Glucose (74-99) mg/dL POC Glucose (mg/dL) 186 H 191 H 175 H (70-110) mg/dL Calcium (8.4-10.2) mg/dL Phosphorus (2.5-4.5) mg/dL 03/20/24 03/21/24 03/21/24 Range/Units 23:50 00:02 01:02 Sodium 133 L (137-145) mmol/L Carbon Dioxide 18 L (22-30) mmol/L Creatinine 0.60 L (0.66-1.25) mg/dL Glucose 164 H (74-99) mg/dL POC Glucose (mg/dL) 162 H 142 H (70-110) mg/dL Calcium 8.3 L (8.4-10.2) mg/dL Phosphorus 1.9 L (2.5-4.5) mg/dL 03/21/24 03/21/24 03/21/24 Range/Units 02:06 03:05 04:05 Sodium (137-145) mmol/L Carbon Dioxide (22-30) mmol/L Creatinine (0.66-1.25) mg/dL Glucose (74-99) mg/dL POC Glucose (mg/dL) 127 H 141 H 161 H (70-110) mg/dL Calcium (8.4-10.2) mg/dL Phosphorus (2.5-4.5) mg/dL 03/21/24 03/21/24 03/21/24 Range/Units 05:08 05:59 07:01 Sodium (137-145) mmol/L Carbon Dioxide (22-30) mmol/L Creatinine (0.66-1.25) mg/dL Glucose (74-99) mg/dL POC Glucose (mg/dL) 178 H 184 H 287 H (70-110) mg/dL Calcium (8.4-10.2) mg/dL Phosphorus (2.5-4.5) mg/dL
[2024-03-21 14:03] LABS: Glucose,Whole Blood 242 mg/dL (70-110)
[2024-03-21 14:07] VITALS: BMI 34.0
[2024-03-21 15:02] LABS: Glucose,Whole Blood 226 mg/dL (70-110)
[2024-03-21 16:05] LABS: Glucose,Whole Blood 224 mg/dL (70-110)
[2024-03-21 16:26] LABS: African American GFR (CKD) >90 (>60 ml/min/1.73 sqM); Anion Gap 14 mmol/L; Blood Urea Nitrogen 6 mg/dL (9-20); Calcium 8.5 mg/dL (8.4-10.2); Carbon Dioxide 18 mmol/L (22-30); Chloride 102 mmol/L (98-107); Glucose 244 mg/dL (74-99); Non-African American GFR(CKD) >90 (>60 ml/min/1.73 sqM); Potassium 4.2 mmol/L (3.5-5.1); Sodium 134 mmol/L (137-145)
[2024-03-21 16:58] LABS: Glucose,Whole Blood 231 mg/dL (70-110)
[2024-03-21 18:00] LABS: Glucose,Whole Blood 303 mg/dL (70-110)
[2024-03-21 19:05] LABS: Glucose,Whole Blood 296 mg/dL (70-110)
[2024-03-21 20:02] LABS: Glucose,Whole Blood 256 mg/dL (70-110)
[2024-03-21 21:21] LABS: Glucose,Whole Blood 247 mg/dL (70-110)
[2024-03-21 22:05] LABS: Glucose,Whole Blood 263 mg/dL (70-110)
[2024-03-21 23:07] LABS: Glucose,Whole Blood 209 mg/dL (70-110)
[2024-03-22 00:04] LABS: Glucose,Whole Blood 192 mg/dL (70-110)
[2024-03-22 00:50] LABS: African American GFR (CKD) >90 (>60 ml/min/1.73 sqM); Anion Gap 8 mmol/L; Blood Urea Nitrogen 7 mg/dL (9-20); Calcium 8.4 mg/dL (8.4-10.2); Carbon Dioxide 23 mmol/L (22-30); Chloride 103 mmol/L (98-107); Glucose 198 mg/dL (74-99); Non-African American GFR(CKD) >90 (>60 ml/min/1.73 sqM); Potassium 3.3 mmol/L (3.5-5.1); Sodium 134 mmol/L (137-145)
[2024-03-22 01:01] LABS: Glucose,Whole Blood 206 mg/dL (70-110)
[2024-03-22] MEDS: INSULIN DETEMIR (LEVEMIR) 100 UNIT/ML SYR SQ ONE (01:48)
[2024-03-22 01:55] LABS: Glucose,Whole Blood 168 mg/dL (70-110)
[2024-03-22 02:53] LABS: Glucose,Whole Blood 161 mg/dL (70-110)
[2024-03-22 03:53] LABS: Glucose,Whole Blood 168 mg/dL (70-110)
[2024-03-22] MEDS ORDERED: DEXTROSE 50% SYRINGE 50 ML IVP PRN ×2 (03:57)
[2024-03-22 06:16] LABS: Glucose,Whole Blood 221 mg/dL (70-110)
[2024-03-22] MEDS: INSULIN ASPART (NovoLOG) 100 UNIT/ML VIAL SQ SCH (06:22)
[2024-03-22] MEDS: POTASSIUM CHLORIDE ER 20 MEQ TAB.ER PO STA (08:56)
[2024-03-22 09:00] VITALS: BP 115/63; PULSE 81; TEMP 98.3
[2024-03-22 09:15] LABS: African American GFR (CKD) >90 (>60 ml/min/1.73 sqM); Anion Gap 10 mmol/L; Blood Urea Nitrogen 5 mg/dL (9-20); Calcium 8.5 mg/dL (8.4-10.2); Carbon Dioxide 21 mmol/L (22-30); Chloride 103 mmol/L (98-107); Glucose 200 mg/dL (74-99); Non-African American GFR(CKD) >90 (>60 ml/min/1.73 sqM); Potassium 3.3 mmol/L (3.5-5.1); Sodium 134 mmol/L (137-145)
[2024-03-22 11:58] LABS: Glucose,Whole Blood 247 mg/dL (70-110)
[2024-03-22 12:20] VITALS: RESP 14
--- NOTE | 2024-03-22 12:26 | P.DS ---
Providers Date of admission: 03/19/24 12:49 Expected date of discharge: 03/22/24 Attending physician: David Garcia Primary care physician: Stated None Hospital Course: 43 year old M with no PMH does not follow a PCP presents to the ED for a constellation of symptoms. He reports nausea/vomiting, lightheadedness, fatigue, polydipsia, polyuria, poor appetite for the past week and a half. This prompted him to come to the ED. He denies any abdominal or chest pain, changes in bowel habits, fever or chills, numbness/weakness/tingling of the extremities. Denies alcohol or illicit drugs. In the ED he underwent extensive evaluation. T 97.5F, HR 119, RR 18, BP 123/80, 98% on RA. CBC and CMP significant for WBC 14.5, RBC 6.05, Hg 17.9, Hct 54.3, Na 134, bicarb < 5, BUN 22, glu 449, ALT 56, alk phos 237. UA 1+ protein, 4+ glucose, 4+ ketones, small blood, negative LE or nitrite. EKG sinus tachycardia with ST elevation in aVF with no reciprocal changes. Patient is started on an insulin drip and 2L NS bolus and admitted for further w orkup and management. His anion gap closed and bicarb normalized and he was transitioned to SQ insulin successfully. His symptoms also completely resolved. 03/22 Patient was seen and examined. Feeling better. Transitioned off the insulin drip yesterday. Adamant about being discharged today no matter what. Discharge Plan: Plans to discharge the patient home on Humulin 70:30 25 units QAM and 15 units QPM. Pricing of insulin was verified with the pharmacy and patient was agreeable to the costs. He has a glucometer at bedside. Prescription sent for lancets and test strips to the pharmacy. Emphasized importance of eating 3 meals a day and sings of hypoglycemia. Advised to check blood sugars 4 times a day and bring a log to see Dr. Schilling in 2 weeks for further titration of insulin. General: non toxic, no distress, appears at stated age Derm: warm, dry Head: atraumatic, normocephalic, symmetric Eyes: EOMI, no lid lag, anicteric sclera Mouth: no lip lesion, mucus membranes moist Cardiovascular: S1S2 reg, no murmur Lungs: Clear to auscultation bilateral, no rhonchi, no rales, no accessory muscle use Ext: no gross muscle atrophy, no edema, no contractures Neuro: no focal neuro deficits Psych: Alert, oriented, appropriate affect Discharge Diagnosis: Diabetic ketoacidosis SIRS likely related to above Erythrocytosis Elevated BUN Transaminitis Obesity with BMI 34 This complex discharge took 45 minutes to complete. Patient Condition at Discharge: Stable Plan - Discharge Summary New Discharge Prescriptions: New Alcohol Antiseptic Pads [Alcohol Swabs] 1 pad TOPICAL QID #120 pad Lancets 1 each MISCELLANE QID #120 each Insulin NPH Hum/Reg Insulin Hm [humuLIN 70/30 Kwikpen] See Rx Instructions .ROUTE .COMPLEX 30 Days #5 pen Blood Sugar Diagnostic [Test Strips] 1 strip MISCELLANE QID #120 strip Discharge Medication List Alcohol Antiseptic Pads [Alcohol Swabs] 1 pad TOPICAL QID #120 pad 03/22/24 [Rx] Blood Sugar Diagnostic [Test Strips] 1 strip MISCELLANE QID #120 strip 03/22/24 [Rx] Insulin NPH Hum/Reg Insulin Hm [humuLIN 70/30 Kwikpen] See Rx Instructions .ROUTE .COMPLEX 30 Days #5 pen 03/22/24 [Rx] Lancets 1 each MISCELLANE QID #120 each 03/22/24 [Rx] Follow up Appointment(s)/Referral(s): Jeffry Schilling MD [REFERRING] - 2 Weeks Activity/Diet/Wound Care/Special Instructions: Activity: As tolerated. Diet: Diabetic Diet Eat 3 balanced meals a day. Special Instructions: Take all of your medications as directed and remember to keep all of your doctor's appointments and follow-up as needed. You will need to follow-up with your primary care doctor and likely referred to an stamp classifier upon returning to [place]. And as discussed, It is of utmost importance to monitor your blood glucose levels 4 times daily before each meal and at bedtime and documenting these findings in a daily log to bring with you to your follow-up appointment. Thank you for allowing us to participate in your care, it was truly a pleasure having you for our patient!!! Discharge Disposition: HOME SELF-CARE
== END 2024-03-22 13:30 | disposition home or self-care (01) | DRG 638 ==
LOC: EC 10:41 → 3SCARD 12:49 → 2SICU 15:55 → 3SCARD 03-20 00:12
PROVIDERS: ADMIT Student in an Organized Health Care Education/Training Program; ATTEND Student in an Organized Health Care Education/Training Program
DX: E11.10 Type 2 diabetes mellitus with ketoacidosis without coma (principal); R65.10 Systemic inflammatory response syndrome (SIRS) of non-infectious origin without acute organ dysfunction; D75.1 Secondary polycythemia; E86.0 Dehydration; R94.4 Abnormal results of kidney function studies; Z68.34 Body mass index [BMI] 34.0-34.9, adult; E66.9 Obesity, unspecified; Z79.4 Long term (current) use of insulin; R00.0 Tachycardia, unspecified
CPT/HCPCS: 36415; 80048; 80051; 80053; 80061; 81001; 82009; 82565; 82803; 82947; 83036; 83605; 83735; 84100; 84520; 85025; 93005; 96361; 96372; 96374; 96375; 96376; 99291